=== PATIENT | male | born 1995 | race African-American/Black ===

== ENCOUNTER 2023-04-23 09:50 | Emergency (ER) | payer OTHER, SELFPAY ==
[2023-04-23 10:00] VITALS: BP 136/82; PULSE 69; O2SAT 100
[2023-04-23 10:02] VITALS: BP 136/82; PULSE 71; RESP 16; TEMP 36.4; O2SAT 99; BMI 25.3
[2023-04-23 10:30] VITALS: BP 121/75; PULSE 66; O2SAT 97
[2023-04-23 10:39] LABS: Add Manual Diff / Slide Review NO; Basophils Absolute Auto 0 /uL (0-100); Basophils Percent Auto 0.4 % (0-2); Eosinophils Absolute Auto 200 /uL (0-450); Hematocrit 39.7 % (41-53); Hemoglobin 13.5 g/dL (13.5-17.5); Lymphocytes Absolute Auto 1500 /uL (1100-4500); Lymphocytes Percent Auto 25.6 % (25-40); Mean Corpuscular HGB Conc 34.1 % (30-36); Mean Corpuscular Hemoglobin 30.1 PG (26-34); Mean Corpuscular Volume 88.4 fL (80-100); Monocytes Absolute Auto 500 /uL (0-900); Monocytes Percent Auto 9.2 % (3-14); Neutrophils Absolute Auto 3600 /uL (1500-7000); Neutrophils Percent Auto 61.8 % (50-75); Platelet Count 232 X10^3/uL (150-400); Red Blood Cell Count 4.49 X10^6/uL (4.5-5.9); Red Cell Distribution Width 13.1 % (11.6-14.8); White Blood Cell Count 5.8 X10^3/uL (4.5-11.0)
[2023-04-23 10:47] LABS: Alanine Aminotransferase 43 IU/L (<50); Albumin 4.2 g/dL (3.5-5.0); Albumin Globulin Ratio 1.3 (1.0-2.8); Alkaline Phosphatase 62 U/L (38-126); Aspartate Aminotransferase 27 IU/L (17-59); BUN Creatinine Ratio 22.3 (6-22); Bilirubin Total 0.5 mg/dL (0.2-1.3); Blood Urea Nitrogen 21 mg/dL (9-20); Calcium 9.1 mg/dL (8.4-10.2); Carbon Dioxide 28 mmol/L (22-32); Chloride 107 mmol/L (98-107); Estimated Glomerular Filt Rate > 60 mL/min (>60); Globulin 3.2 g/dL (1.7-4.1); Glucose 100 mg/dL (70-100); HEMOLYSIS < 15 (0-50); Lipase 84 U/L (23-300); Potassium 4.1 mmol/L (3.4-5.1); Sodium 139 mmol/L (137-145); Total Protein 7.4 g/dL (6.3-8.2)
--- NOTE | 2023-04-23 10:50 | ED_ITS ---
HPI - Abdominal Pain General Chief Complaint: Abdominal Pain Stated Complaint: severe intestinal pain Time Seen by Provider: 04/23/23 10:18 Source: patient Mode of arrival: Ambulatory History of Present Illness HPI narrative: 28-year-old male who vapes nicotine who presents with complaint of right upper quadrant abdominal pain that started last Friday. Patient states it is actually better today but was much more intense yesterday. He has had issues on and off in the past typically when he eats peanuts. He has not noticed issues so much with fatty foods. States started last Friday has been worse when he goes to have a large bowel movement but then has relief afterwards. Patient states no fevers or chills. No nausea or vomiting. States stools has been more soft, he states he had 1 bowel movement that is seem very dark brown almost black but otherwise has been yellow to brown. They have been regular but soft and not well formed. Patient states no urinary symptoms, no dysuria urgency or frequency or discharge. No back or flank pain. Denies lower abdominal pain. States very localized to the right upper. Denies any medical issues. No prior surgeries. Vapes tobacco, occasional alcohol, uses marijuana but no other recreational drugs. Has not allergy to amoxicillin. Related Data Allergies Allergy/AdvReac Type Severity Reaction Status Date / Time amoxicillin Allergy Rash Verified 04/23/23 10:06 Review of Systems Review of Systems ROS Unobtainable: All systems reviewed & are unremarkable except as noted in HPI and below Patient History tobacco type: vaping alcohol intake frequency: a few times a month Substance Use Type: marijuana Exam Narrative Exam Narrative: GENERAL: Alert and oriented x three, male in mild distress. HEENT: Head normocephalic, atraumatic, EOMI, pupils reactive, face symmetric, moist mucous membranes NECK: Supple, full range of motion CARDIOVASCULAR: Regular rate and rhythm without murmurs, rubs or gallops. RESPIRATORY: Breath sounds equal bilaterally, no wheezes rales or rhonchi. ABDOMEN: Soft, positive for right upper quadrant tenderness. No other tenderness in the other quadrants. Nondistended. Normoactive bowel sounds all 4 quadrants. No guarding or rebound, rigidity, no mass : No CVA tenderness EXTREMITIES: Normal range of motion, no clubbing or edema. Neurovascularly intact NEUROLOGICAL: Cranial nerves II through XII grossly intact. Moving all extremities SKIN: Warm, dry, no petechiae, no rashes or lesions, no ecchymosis or other skin changes. Initial Vital Signs Initial Vital Signs: Vital Signs Pulse Rate 69 04/23/23 10:00 Blood Pressure 136/82 04/23/23 10:00 Pulse Oximetry 100 04/23/23 10:00 Course Orders Ordered: Discontinued Medications Ondansetron HCl (Ondansetron 4 Mg Odt) 4 mg PO NOW PRN PRN Reason: Nausea And Vomiting Ondansetron HCl (Ondansetron 4 Mg/2 Ml Inj) 4 mg IV NOW PRN PRN Reason: Nausea And Vomiting Vital Signs Vital signs: Vital Signs - 8 hr 04/23/23 10:02 Temperature 97.6 F Pulse Rate 71 Respiratory Rate 16 Blood Pressure 136/82 Pulse Oximetry 99 Oxygen Delivery Method Room Air MDM - Abdominal Pain Lab Data 04/23/23 10:25 04/23/23 10:25 Labs: Lab Results 04/23/23 Range/Units 10:25 WBC 5.8 (4.5-11.0) X10^3/uL RBC 4.49 L (4.5-5.9) X10^6/uL Hgb 13.5 (13.5-17.5) g/dL Hct 39.7 L (41-53) % MCV 88.4 (80-100) fL MCH 30.1 (26-34) PG MCHC 34.1 (30-36) % RDW 13.1 (11.6-14.8) % Plt Count 232 (150-400) X10^3/uL Neut % (Auto) 61.8 (50-75) % Lymph % (Auto) 25.6 (25-40) % [place] % (Auto) 9.2 (3-14) % Eos % (Auto) 3.0 (2-4) % Baso % (Auto) 0.4 (0-2) % Neut # (Auto) 3600 (1705-0815) /uL Lymph # (Auto) 1500 (5369-0738) /uL [place] # (Auto) 500 (0-900) /uL Eos # (Auto) 200 (0-450) /uL Baso # (Auto) 0 (0-100) /uL Sodium 139 (137-145) mmol/L Potassium 4.1 (3.4-5.1) mmol/L Chloride 107 (98-107) mmol/L Carbon Dioxide 28 (22-32) mmol/L BUN 21 H (9-20) mg/dL Creatinine 0.94 (0.66-1.25) mg/dL Estimated GFR > 60 (>60) mL/min BUN/Creatinine Ratio 22.3 H (6-22) Glucose 100 (70-100) mg/dL Calcium 9.1 (8.4-10.2) mg/dL Total Bilirubin 0.5 (0.2-1.3) mg/dL AST 27 (17-59) IU/L ALT 43 (<50) IU/L Alkaline Phosphatase 62 (38-126) U/L Total Protein 7.4 (6.3-8.2) g/dL Albumin 4.2 (3.5-5.0) g/dL Globulin 3.2 (1.7-4.1) g/dL Albumin/Globulin Ratio 1.3 (1.0-2.8) Lipase 84 (23-300) U/L Point of care testing: Urine Dip Bedside Urine Glucose Negative Bedside Urine Bilirubin - Negative Bedside Urine Ketone - Negative Urine Specific [place] 1.030 Bedside Urine Occult Blood - Negative Bedside Urine pH 6.0 Bedside Urine Protein - Negative Bedside Urine Urobilinogen - Negative Bedside Urine Nitrite - Negative Bedside Urine Leukocytes - Negative Esterase Imaging Data US - abdomen: Radiologist's Impression: [place] [address] Ultrasound Report Signed Patient: Riley Suggs MR#: [id number] : 1995 Acct:[id number] Age/Sex: 28 / M Date of Service: 04/23/23 Loc: ED Accession Number: [id number] Procedure: US abdomen limited Ordering Provider: Lacey Rowan D.O. PROCEDURE: US ABDOMEN LIMITED INDICATIONS: RUQ PAIN TECHNIQUE: Real-time focused scanning was performed of the abdomen, with image documentation. COMPARISON: None. FINDINGS: Probable hemangioma within the right hepatic lobe measuring 10 mm. Gallbladder is grossly unremarkable. No biliary ductal dilatation. Pancreas is not well seen. Right kidney is grossly unremarkable. IMPRESSION: 1. No acute process. 2. Probable right hepatic lobe hemangioma. This could be further assessed with nonemergent outpatient follow-up MRI, if clinically indicated. Dictated by: Alverto Quintanilla M.D. on 04/23/2023 at 11:25 Approved by: Alverto Quintanilla M.D. on 04/23/2023 at 11:26 CT scan - abdomen/pelvis: Radiologist's Impression: [address] [address] [address] Scan Report Signed Patient: Riley Suggs MR#: [id number] : 1995 Acct:[id number] Age/Sex: 28 / M Date of Service: 04/23/23 Loc: ED Accession Number: [id number] Procedure: CT abdomen pelvis w con Ordering Provider: Lacey Rowan D.O. PROCEDURE: CT ABDOMEN PELVIS W CON INDICATIONS: right abd pain, diarrhea, blood TECHNIQUE: After the administration of intravenous contrast, axial sections acquired from the lung bases to the pubic symphysis. Coronal and sagittal reformats were performed. For radiation dose reduction, the following was used: automated exposure control, adjustment of mA and/or kV according to patient size. COMPARISON: None. FINDINGS: Image quality: Diagnostic. Lower Chest: No significant findings. ABDOMEN: Liver: No solid mass. Gallbladder: No radiopaque gallstones or wall thickening. Biliary ducts: No biliary dilation. Pancreas: No ductal dilation. Spleen: Size is within normal limits. Adrenal Glands: No adrenal nodules. Kidneys and Ureters: No hydronephrosis. No solid mass. No complex renal cystic lesion which requires follow up. Stomach and Bowel: Normal colonic caliber, without significant wall thickening. Normal appendix. Peritoneum: No abnormal intraperitoneal fluid. No free air. Ventral Wall: No significant ventral hernia. Abdominal Nodes: No retroperitoneal or mesenteric adenopathy by size criteria. Vessels: Aorta and inferior vena cava are normal in size. PELVIS: Pelvic Organs: Unremarkable. Bladder: No bladder wall thickening, accounting for underdistention. Pelvic Nodes: No enlarged lymph nodes. Miscellaneous: No inguinal hernias are seen. Bones: No aggressive osseous abnormality. IMPRESSION: 1. No acute process. 2. Normal appendix. Dictated by: Alverto Quintanilla M.D. on 04/23/2023 at 11:52 Approved by: Alverto Quintanilla M.D. on 04/23/2023 at 11:[address] [facility] Narrative Medical decision making narrative: 28-year-old male with complaint of right upper quadrant pain since last Friday, has improved in the last day. Patient states seems to be worse with peanuts but not other fatty foods. Patient states he has had loose bowel movements had 1 bowel movement that was sort of dark blackish to brown. Also felt much better after having large bowel movement yesterday. Labs show white count of 5.8 hemoglobin of 13.5 platelets of 232. Sodium of 139 potassium of 4 1 chloride 107 CO2 of 28 with a BUN 21 and a creatinine 0.94, glucose of 100, LFTs including bilirubin, AST, ALT, alk-phos and lipase are all negative. Urine is negative Right upper quadrant ultrasound shows probable right hepatic lobe hemangioma. Gallbladder is normal. CT abdomen pelvis shows no acute change. Appendix is normal. Reviewed findings from ultrasound with patient, less likely cause of pain. Patient feels much improved from yesterday plan for discharge home with return precautions. Discharge Plan Departure Patient Disposition: Home Clinical Impression: Abdominal pain Instructions: DI for Abdominal Pain-Adult Activity Restrictions/Additional Instructions: Your ultrasound imaging shows a normal gallbladder but does show probable right hepatic hemangioma. You can follow up for outpatient MR if you would like to have this further evaluated. Your imaging otherwise does not show any other major changes. You may take Tylenol up to a 1000 mg every 6 hours and/or ibuprofen up to 600 mg every 6 hours as needed for pain. Please return for fevers new or worsening abdominal back or flank pain or other new or concerning changes. Stand Alone Forms: Patient Portal/API
[2023-04-23 11:13] VITALS: BP 127/83; PULSE 66; O2SAT 100
[2023-04-23 11:30] VITALS: BP 121/78; PULSE 53; O2SAT 97
--- NOTE | 2023-04-23 11:30 | DI.CT.S_ITS ---
PROCEDURE: CT ABDOMEN PELVIS W CON INDICATIONS: right abd pain, diarrhea, blood TECHNIQUE: After the administration of intravenous contrast, axial sections acquired from the lung bases to the pubic symphysis. Coronal and sagittal reformats were performed. For radiation dose reduction, the following was used: automated exposure control, adjustment of mA and/or kV according to patient size. COMPARISON: None. FINDINGS: Image quality: Diagnostic. Lower Chest: No significant findings. ABDOMEN: Liver: No solid mass. Gallbladder: No radiopaque gallstones or wall thickening. Biliary ducts: No biliary dilation. Pancreas: No ductal dilation. Spleen: Size is within normal limits. Adrenal Glands: No adrenal nodules. Kidneys and Ureters: No hydronephrosis. No solid mass. No complex renal cystic lesion which requires follow up. Stomach and Bowel: Normal colonic caliber, without significant wall thickening. Normal appendix. Peritoneum: No abnormal intraperitoneal fluid. No free air. Ventral Wall: No significant ventral hernia. Abdominal Nodes: No retroperitoneal or mesenteric adenopathy by size criteria. Vessels: Aorta and inferior vena cava are normal in size. PELVIS: Pelvic Organs: Unremarkable. Bladder: No bladder wall thickening, accounting for underdistention. Pelvic Nodes: No enlarged lymph nodes. Miscellaneous: No inguinal hernias are seen. Bones: No aggressive osseous abnormality. IMPRESSION: 1. No acute process. 2. Normal appendix. Dictated by: Alverto Quintanilla M.D. on 04/23/2023 at 11:52 Approved by: Alverto Quintanilla M.D. on 04/23/2023 at 11:55
[2023-04-23 12:00] VITALS: PULSE 53; O2SAT 98
== END 2023-04-23 12:26 | disposition home or self-care (01) ==
PROVIDERS: Emergency Provider Emergency Medicine
DX: R10.11 Right upper quadrant pain (principal)
CPT/HCPCS: 36415; 74177; 76705; 80053; 81003; 83690; 85025; 99284; Q9967

== ENCOUNTER 2024-01-30 10:32 | Emergency (ER) | payer OTHER, SELFPAY ==
[2024-01-30 10:41] VITALS: BP 121/79; PULSE 67; RESP 15; TEMP 36.3; O2SAT 99; BMI 27.7
--- NOTE | 2024-01-30 12:00 | CM.SWNOTE ---
Addendum entered by Quita Carmichael 01/31/24 11:08: MINE ENGINEERING SUPERINTENDENT receives return call voicemail from intake at [facility] and it is reported that they have been providing patient resources for a higher level of care. MINE ENGINEERING SUPERINTENDENT calls [facility] admissions and they provide clarification that after patient's assessment with [facility] it was recommended that patient receive a higher level of care outside of [facility] and patient was provided resources. Quita Carmichael, [facility] Original Note: ED MINE ENGINEERING SUPERINTENDENT Assessment Note Patient is 28 y/o male who presents to the ED for assistance in establishing with a Psychiatrist in attempt to get medication management. Patient's PCP will not prescribe MH medications for patient and patient has had difficulty establishing care with psychiatrist. Patient sees a PCP on the [facility], patient has [employer] insurance. Patient endorses hx of PTSD, Depression, ADHD and Anxiety. Patient endorses hx of ETOH, Cocaine and Marijuana use. 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 MINE ENGINEERING SUPERINTENDENT enters room to meet with patient. Patient resents as A/Ox4, calm, cooperative and communicative. Patient presents with flat affect, with some frustration due to barriers in accessing MH care. Patient denies SI and HI, patient endorses worry and concern that he is trying to prevent himself from reaching a breaking point where has thoughts of SI or relapse. Patient endorses concern he will use methamphetamine. 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 Patient states that he is concerned for his executive functioning and managing his day to day. Patient is employed, has housing and transportation. Patient sees therapist through [facility] and has appt today at 1300. Patient endorses he self referred with [facility] and he is waiting to hear back from them for GERALD assessment to start services, patient endorses he received a Psych referral through [employer] MINE ENGINEERING SUPERINTENDENT provides patient with lists of Psychiatrists that accept his insurance and lists of crisis contacts. Upon further discussion with patient, MINE ENGINEERING SUPERINTENDENT considers [facility] and submits referral for patient. Upon further review, it is reported that they do not accept [employer], MINE ENGINEERING SUPERINTENDENT calls [facility] to confirm this. MINE ENGINEERING SUPERINTENDENT informs patient of this and he states that he has called from the lists of psychiatrists provided by [facility] and was able to secure an appt in February. Patient endorses preference to leave ED before being seen by ED provider, patient endorses safety upon leaving ED. MINE ENGINEERING SUPERINTENDENT informs RN. Patient endorses preference to make it to his 1300 appt with therapist. MINE ENGINEERING SUPERINTENDENT provides patient with list of GERALD providers as well. MINE ENGINEERING SUPERINTENDENT calls [facility] and leaves VM in efforts to expedite process with patient's referral. Plan: patient chose to leave ED before being seen by provider. Patient to f/u with MH/GERALD resources provided, patient to f/u with therapist today. Patient likely to get established with Psychiatric care in February. MANISH AsencioSW
--- NOTE | 2024-01-30 12:11 | ED_ITS ---
HPI - Psych <Wendy Walker PA-C - Last Filed: 01/30/24 12:13> General Chief Complaint: Psychiatric Symptoms Stated Complaint: mental health Time Seen by Provider: 01/30/24 11:36 Source: patient Mode of arrival: Ambulatory History of Present Illness HPI Narrative: Mr. Suggs is a 28-year-old male with a past medical history of PTSD and cocaine use currently 20 days clean who presents to the emergency department for mental health concerns. I did not evaluate the patient and he left prior to my exam. However our case management social worker Quita did meet with the patient and provided him with resources including a therapy appointment at 1:00 p.m. which is why he left prior to my evaluation. We did discuss this patient. He was denying SI/HI. Patient was looking for assistance with following up with Psychiatry which he received in the ER. Related Data Allergies Allergy/AdvReac Type Severity Reaction Status Date / Time amoxicillin Allergy Rash Verified 04/23/23 10:06 minocycline Allergy Verified 01/30/24 10:41 procaine [From Novocain] Allergy Verified 01/30/24 10:41 Patient History <Wendy Walker PA-C - Last Filed: 01/30/24 12:13> Social History Smoking Status: Current every day smoker Smoking Status: Current every day smoker tobacco type: vaping alcohol intake frequency: a few times a month Exam <Wendy Walker PA-C - Last Filed: 01/30/24 12:13> Initial Vital Signs Initial Vital Signs: Vital Signs Temperature 97.3 F L 01/30/24 10:41 Pulse Rate 67 01/30/24 10:41 Respiratory Rate 15 01/30/24 10:41 Blood Pressure 121/79 01/30/24 10:41 Pulse Oximetry 99 01/30/24 10:41 Oxygen Delivery Method Room Air 01/30/24 10:41 <Joe Perales MD - Last Filed: 01/30/24 18:39> Initial Vital Signs Initial Vital Signs: Vital Signs Temperature 97.3 F L 01/30/24 10:41 Pulse Rate 67 01/30/24 10:41 Respiratory Rate 15 01/30/24 10:41 Blood Pressure 121/79 01/30/24 10:41 Pulse Oximetry 99 01/30/24 10:41 Oxygen Delivery Method Room Air 01/30/24 10:41 Course <Wendy Walker PA-C - Last Filed: 01/30/24 12:13> Orders Ordered: ED Orders 01/30/24 10:48 [facility] [employer] Stat Vital Signs Vital signs: Vital Signs - 8 hr 01/30/24 10:41 Temperature 97.3 F L Pulse Rate 67 Respiratory Rate 15 Blood Pressure 121/79 Pulse Oximetry 99 Oxygen Delivery Method Room Air <Joe Perales MD - Last Filed: 01/30/24 18:39> Orders Ordered: ED Orders 01/30/24 10:48 Consult to [facility] Stat Vital Signs Vital signs: Vital Signs - 8 hr 01/30/24 10:41 Temperature 97.3 F L Pulse Rate 67 Respiratory Rate 15 Blood Pressure 121/79 Pulse Oximetry 99 Oxygen Delivery Method Room Air Discharge Plan Departure Patient Disposition: Left Without Being Seen Clinical Impression: Patient left before evaluation by physician ED Sign-out <Joe Perales MD - Last Filed: 01/30/24 18:39> Cosign ED Attending Cosignature Attestation: I was immediately available in the department for consultation. This documentation has been reviewed and I agree with assessment and plan. Supervised by Joe Perales MD
== END 2024-01-30 11:58 | disposition left against medical advice (07) ==
PROVIDERS: Emergency Provider Physician Assistant
DX: F99 Mental disorder, not otherwise specified (principal)
CPT/HCPCS: 99281